=== PATIENT | female | born 1980 | race African-American/Black ===

== ENCOUNTER 2025-05-02 01:50 | Emergency (ER) | payer OTHER, SELFPAY ==
[2025-05-02 01:52] VITALS: BP 157/93
--- NOTE | 2025-05-02 02:11 | ED.GENMED ---
History of Present Illness
General
Chief Complaint: Musculo-Skeletal Complaint
Time Seen by Provider: 05/02/25 01:57
History of Present Illness
History of Present Illness:
44-year-old female presenting with left knee pain starting yesterday. Patient states that she goes to the gym 5 times a week but has not gone since Sunday secondary to pain. Patient states that she did like today on Sunday. Pain worsened
tonight prompting ED arrival. Patient denies any falls or trauma. Patient denies numbness, weakness, tingling, fever or rash. Patient reports using Motrin with minimal relief. Patient denies any recent prolonged travel/immobilization/surgery, no
history of DVT/PE.
Past History
Past History
ED Past Medical History: Asthma and Hypothyroidism
ED Past Surgical History: Cholecystectomy
Social History
Tobacco: Non-smoker
Alcohol: None
Drug: None
Phy Exam
Physical Exam
Physical Exam:
General: Alert, no acute distress
MSK: no lower extremity edema bilaterally. No deformity. Left knee: Medial joint line tenderness palpation. No overlying erythema, ecchymosis, edema or rash. Full range of motion of the left knee. 2+ left DP pulse. No tenderness palpation to
left calf
Skin: warm, dry
Neuro: Alert and oriented x3. no focal deficits
Course
Orders/Labs/Results
Orders:
Orders
05/02/25 02:02
Ibuprofen [Motrin] 800 mg PO NOW STA
CR Knee - Left 4 Or More View* Urgent
Comment:
Reason For Exam: diffuse pain, greatest medial tenderness
Vital Signs
Initial and Last Documented VS:
Initial Vital Signs
Temp Pulse Resp BP Pulse Ox
98.1 F 95 18 157/93 100
05/02/25 01:52 05/02/25 01:52 05/02/25 01:52 05/02/25 01:52 05/02/25 01:52
Last Documented Vital Signs
Temp Pulse Resp BP Pulse Ox
98.1 F 95 18 157/93 100
05/02/25 01:52 05/02/25 01:52 05/02/25 01:52 05/02/25 01:52 05/02/25 02:13
MDM/Problems Addressed
Differential Diagnosis Includes:
Fracture, dislocation, soft tissue injury. Low suspicion for DVT given no risk factors, no calf tenderness, point tenderness on anterior aspect of knee, pain started after leg day
MDM/Problems Addressed:
X-ray reviewed, no acute fracture or dislocation as read by me. Discussed results with patient at bedside. Will place in knee immobilizer. Stable for discharge with orthopedic follow-up
*Pulse Oximetry
SaO2: 100
Oxygen Mode of Delivery: Room air
Patient hypoxic: no
*Critical Care Note
Total Time (30-74mins, 75-104mins- exclusive of procedures): Not Applicable
ED Attending Note
-
Portions of this chart may have been created with voice recognition software.� Occasional wrong word or��sound alike� substitutions may have occurred due to the inherent limitations of voice recognition software.
Discharge Plan
Departure
Patient Disposition: Home (Routine Discharge)
Date of Disposition: 05/02/25
Time of Disposition: 02:45
Patient with high blood pressure during this ER visit?: Yes
Discharge Problem:
Acute pain of left knee
Instructions: Knee Pain (DC), BLOOD PRESSURE
Prescriptions:
No Action
prednisone 50 MG tablet
50 mg PO Daily Qty: 2 0RF
albuterol sulfate [Proventil HFA] 90 MCG/PUFF HFA aerosol inhaler
1 puff inhalation Q4HPRN PRN (Reason: shortness of breath) Qty: 1 0RF
Referrals:
Nehemiah Roberts MD [Active, Orthopedics]
UNKNOWN - PT DOES,NOT KNOW [Family Provider]
Activity Restrictions/Additional Instructions:
Take Tylenol 975 mg every 6 hours and/or ibuprofen 800 mg every 8 hours with food as needed for pain
Rest, ice, elevation
Use knee immobilizer as needed
Follow-up with orthopedics next week
Return to the emergency department for leg swelling, redness, increased warmth, chest pain, shortness of breath or new/worsening symptoms
Interventions
Interventions:
*Risk Screen - Suicide Last Done: 05/02/25 01:52
*General Assessment Last Done: 05/02/25 01:55
*Neglect/Abuse Screening Last Done: 05/02/25 01:52
Discharge Date and Time
Print Language: GEORGIAN
[2025-05-02] MEDS: MOTRIN 800 MG PO (02:18)
[2025-05-02 03:01] VITALS: BP 131/74
== END 2025-05-02 03:05 | disposition home or self-care (01) ==
LOC: EMR 01:50
PROVIDERS: EMERGENCY PHYSICIAN Emergency Medicine
DX: M25.562 Pain in left knee (principal); J45.909 Unspecified asthma, uncomplicated; E03.9 Hypothyroidism, unspecified; Z90.49 Acquired absence of other specified parts of digestive tract
CPT/HCPCS: 99283; 29505; 73564

== ENCOUNTER 2025-08-15 23:30 | Emergency (ER) | payer OTHER, SELFPAY ==
[2025-08-15 23:31] VITALS: BP 155/108
[2025-08-16 00:45] LABS: Hematocrit 43.5 % (37.0-47.0); Hemoglobin 14.7 g/dL (12.0-16.0); Mean Corp Hgb Conc. 33.8 g/dL (33.0-37.0); Mean Corpuscular Volume 90.2 fL (81.0-99.0); Nucleated Red Blood Cells % 0 %; Platelet Count 226 10^3/uL (130-400); Red Cell Dist. Width 12.9 % (11.5-14.5)
[2025-08-16] MEDS: ZOFRAN 4 MG IV (01:00)
[2025-08-16] MEDS: PROTONIX IV 40 MG IV (01:00)
[2025-08-16] MEDS: NSS 1000 IV (01:04)
[2025-08-16 01:12] LABS: Troponin I < 0.012 ng/ml
--- NOTE | 2025-08-16 01:12 | ED.GENMED ---
History of Present Illness
General
Chief Complaint: Abdominal Pain
Source: patient and spouse
Exam Limitations: none
Time Seen by Provider: 08/16/25 00:29
Nursing documentation reviewed up to this point in time: agreed with
History of Present Illness
History of Present Illness:
The patient is a 44-year-old female presenting with abdominal pain that began suddenly around 10 PM while she was doing schoolwork. The pain is located in the upper abdomen and is described as similar to previous gallbladder attacks, although it is
in a different location. The patient had her gallbladder removed in the past. She likens the pain to a 'band of liquid fire' spreading across her upper abdomen, currently rated at a severity of 7 out of 10. The patient denies diarrhea but reports
constipation and has experienced nausea that worsens when her stomach is empty. Nausea has been an ongoing issue over the past few weeks. She experiences some relief from nausea when she eats. The patient reports a lack of appetite and has
intermittent nausea and chest flutters for the past few weeks. No history of gastritis or peptic ulcers was noted.
Upper abdominal pain began tonight somewhat suddenly shortly after consuming mac & cheese. She did not take anything for discomfort. She notes nausea and 2 episodes of vomiting. Currently pain is improved but has not resolved.
She has history of asthma, hypothyroidism, lupus nephritis. She states her lupus has been in remission since 2019.
Her daily medications include: Azathioprine, Plaquenil, losartan, pravastatin, Singulair, levothyroxine, control pills, buprenorphine patch. She states her renal function has remained normal. She tends to avoid NSAIDs due to lupus nephritis.
Past History
Past History
ED Past Medical History: Asthma, Hypothyroidism, Psychiatric (ADHD) and Other (Lupus nephritis; chronic pain related to lupus-maintained on buprenorphine patch)
ED Past Surgical History: Cholecystectomy
Social History
Tobacco: Non-smoker
Alcohol: None
Drug: None
Personal:
Living: with family
Employment: Employed
Family History
Family History: Other (Noncontributory)
Phy Exam
Physical Exam
Physical Exam:
GENERAL: 44-year-old woman appears her stated age, awake and alert, appears mildly uncomfortable but easily communicative. is accompanying.
EYE: pupils equal and reactive. anicteric
NECK: Supple, nontender, no meningismus, no significant adenopathy.
ENT: oral mucosa is moist. No rhinorrhea.
CARDIAC: Regular rate and rhythm. no murmur. No rub.
LUNGS: Clear breath sounds bilaterally, no acute respiratory distress, no wheezes/rales/rhonchi
ABDOMEN: Soft, nondistended, without focal tenderness, no r/g, no cvat. normoactive BS.
NEUROLOGICAL: Alert and oriented x3, no focal neuro deficits.
SKIN: Warm and dry, normal color, skin intact. No rash.
MUSCULOSKELETAL: No C/C/E. peripheral pulses are full and equal b/l. No palpable tenderness.
PSYCH: Normal and appropriate interaction.
Course
Orders/Labs/Results
Orders:
Orders
08/15/25 23:36
IV Insert/Care/Rem.- Treatment PRN
Complete Blood Count/With Diff Urgent
08/15/25 23:37
Electrocardiogram (*1) Urgent
Reason for Study: Abdominal Pain
EKG- Treatment ONCE
Troponin I Urgent
Test Result ONCE
08/16/25 00:44
0.9% Sodium Chloride 1000 ml [Nss] 1,000 ml IV BOLUS
Ondansetron Injectable [Zofran] 4 mg IV NOW STA
Pantoprazole [Protonix IV] 40 mg IV NOW STA
08/16/25 01:06
Comprehensive Metabolic Panel Urgent
Comment: REDRAW
HCG, Serum Qualitative Screen Urgent
Comment: REDRAW
Lipase Urgent
Comment: REDRAW
08/16/25 03:14
CT Abd/pelvis W Iv Cont Urgent
Comment:
Reason For Exam: acute upper abd pain w N/V
08/16/25 03:15
ECG [Electrocardiogram (*1)] Urgent
Reason for Study: Chest Pain
EKG- Treatment ONCE
08/16/25 03:25
Troponin I Urgent
Abnormal Lab Results
08/16/25
00:35
Absolute Lymphs (auto) 1.0 L 10^3/uL
(1.2-3.4)
Absolute Monos (auto) 0.7 H 10^3/uL
(0.1-0.6)
Neutrophils % 75.7 H %
(42.2-75.2)
Lymphocytes % 13.0 L %
(20.5-51.1)
08/16/25 00:35
08/16/25 01:06
Vital Signs
Initial and Last Documented VS:
Initial Vital Signs
Temp Pulse Resp BP Pulse Ox
98 F 112 26 155/108 100
08/15/25 23:31 08/15/25 23:31 08/15/25 23:31 08/15/25 23:31 08/15/25 23:31
Last Documented Vital Signs
Temp Pulse Resp BP Pulse Ox
98 F 86 18 121/73 97
08/15/25 23:31 08/16/25 02:20 08/16/25 02:20 08/16/25 02:20 08/16/25 02:20
MDM/Problems Addressed
Differential Diagnosis Includes:
The Differential Diagnosis includes, in no particular order and is not limited to:
- Peptic ulcer disease
- Gastroesophageal reflux disease (GERD)
- Pancreatitis
- Gastritis
- Biliary tract disease (post-cholecystectomy syndrome)
- Upper gastrointestinal tract infection
- Irritable bowel syndrome (IBS)
- Medication-induced gastritis
- Mesenteric ischemia
- Small bowel obstruction
MDM/Problems Addressed:
Acute upper abdominal pain accompanied with nausea, vomiting.
- Further evaluation and management of abdominal pain. Will check labs, EKG. Consider imaging depending on results.
- Initiate IV fluids, give an IV dose of Protonix and Zofran.
- Consideration of possible upper gastrointestinal issues given symptom similarity to previous gallbladder attacks and empty stomach nausea.
- Continue current management for lupus nephritis, asthma, and hypothyroidism.
- Discuss potential need for gastrointestinal specialist referral if symptoms persist.
Chronic conditions affecting care:
Lupus nephritis, immunocompromised
Hypothyroidism
Previous cholecystectomy
Chronic conditions affecting care: Previous abdomnial surgery, Immunosuppressed and Kidney disease
*Radiology
Radiology exam reviewed: radiology read reviewed
*Pulse Oximetry
SaO2: 99
Oxygen Mode of Delivery: Room air
Patient hypoxic: no
*EKG
Interpreted by ED Provider?: Yes
Interpretation: normal
Comparison EKG: no comparison EKG present
Heart Rate: 102
Rate: tachycardiac
Rhythm: sinus
Custer: normal axis
Interval: normal interval
QRS Pattern: normal QRS
Ischemia: no ischemia
*Fashion Consultant Interpretation
Rate: normal
Interpretation: normal
Rhythm: sinus
*Critical Care Note
Total Time (30-74mins, 75-104mins- exclusive of procedures): Not Applicable
Update Note
Update Note:
04:15
Patient remains comfortable and pain-free after IV fluids, Protonix and Zofran.
Labs are unremarkable.
Troponin x 2 is negative.
EKG is unremarkable.
CT abdomen pelvis unremarkable.
I suspect the patient may be suffering with some GERD, gastritis and recommend a course of Protonix. Will add Carafate for as needed upper abdominal pain.
Recommend bland diet.
Prompt follow-up with PCP and patient will be referred to GI as well.
Return precautions discussed.
ED Attending Note
-
Portions of this chart may have been created with voice recognition software.� Occasional wrong word or��sound alike� substitutions may have occurred due to the inherent limitations of voice recognition software.
Discharge Plan
Departure
Patient Disposition: Home (Routine Discharge)
Date of Disposition: 08/16/25
Time of Disposition: 04:20
Patient with high blood pressure during this ER visit?: No
Condition: Good
Discharge Problem:
Acute gastritis, acute GERD
Instructions: Acid Reflux and GERD in Adults (DC)
Prescriptions:
New
sucralfate [Carafate] 1 gram tablet
1 g PO QIDPRN PRN (Reason: ACID REFLUX) Qty: 60 0RF
pantoprazole [Protonix] 40 mg tablet,delayed release (DR/EC)
40 mg PO DAILY Qty: 30 1RF
No Action
prednisone 50 MG tablet
50 mg PO Daily Qty: 2 0RF
albuterol sulfate [Proventil HFA] 90 MCG/PUFF HFA aerosol inhaler
1 puff inhalation Q4HPRN PRN (Reason: shortness of breath) Qty: 1 0RF
Referrals:
UNKNOWN - PT DOES,NOT KNOW [Family Provider]
Maria De Jesus Durham MD [Active, Gastroenterology] - Call in 1-3 days for appt
Interventions
Interventions:
*Risk Screen - Suicide Last Done: 08/15/25 23:31
*General Assessment Last Done: 08/16/25 01:12
*Neglect/Abuse Screening Last Done: 08/15/25 23:31
*ED- Fall Risk Assessment Last Done: 08/16/25 01:12
*ED COVID-19 Vaccine History Last Done: 08/16/25 01:12
*ED Influenza Vaccine History Last Done: 08/16/25 01:12
UV-Dtcxma-Tcmnhnidbr Assessment Last Done: 08/16/25 01:12
Discharge Date and Time
Print Language: UKRAINIAN
[2025-08-16 01:27] LABS: HCG, Serum Qualitative Screen Negative
[2025-08-16 01:30] LABS: ALT (SGPT) 23 U/L (0-35); AST (SGOT) 33 U/L (14-36); Albumin 3.9 g/dl (3.5-5.0); Alkaline Phosphatase 58 U/L (38-126); Blood Urea Nitrogen 15 mg/dl (7-17); Calcium 8.8 mg/dl (8.4-10.2); Carbon Dioxide 25 mmol/L (22-30); Chloride 107 mmol/L (98-107); Glucose 99 mg/dl (70-99); Lipase 178 U/L (23-300); Potassium 3.8 mmol/L (3.5-5.1); Sodium 137 mmol/L (135-145); Total Protein 7.1 g/dl (6.3-8.2); eGFR > 60.00
[2025-08-16 02:20] VITALS: BP 121/73
[2025-08-16 04:01] LABS: Troponin I < 0.012 ng/ml
== END 2025-08-16 04:50 | disposition home or self-care (01) ==
LOC: EMR 23:30
PROVIDERS: EMERGENCY PHYSICIAN Emergency Medicine
DX: K29.00 Acute gastritis without bleeding (principal); K21.9 Gastro-esophageal reflux disease without esophagitis; J45.909 Unspecified asthma, uncomplicated; E03.9 Hypothyroidism, unspecified; M32.14 Glomerular disease in systemic lupus erythematosus; Z79.3 Long term (current) use of hormonal contraceptives; Z79.890 Hormone replacement therapy; Z79.899 Other long term (current) drug therapy
CPT/HCPCS: 96374; 96375; 96361; 99284; 74177; 80053; 83690; 84484; 84703; 85025; 93005; Q9967